=== PATIENT | male | born 1965 | race Caucasian/White ===

== ENCOUNTER 2016-10-19 15:20 | Emergency (ER) | payer OTHER ==
[2016-10-19 16:04] VITALS: BP 119/80
--- NOTE | 2016-10-19 17:10 | UC ---
Throat Pain/Nasal Fidel HPI - HPI Summary HPI Summary: patient has had a frontal headache and some sinus congestion for 1 day - History of Current Complaint Chief Complaint: UCGeneralIllness Stated Complaint: SINUSES Time Seen by Provider: 10/19/16 16:51 Hx Obtained From: Patient Onset/Duration: Sudden Onset, Lasting Hours Severity: Moderate Pain Intensity: 5 Pain Scale Used: 0-10 Numeric Cough: None Associated Signs & Symptoms: Positive: Sinus Discomfort - Epiglottits Risk Factors Epiglottis Risk Factors: Negative - Allergies/Home Medications Allergies/Adverse Reactions: Allergies Allergy/AdvReac Type Severity Reaction Status Date / Time No Known Allergies Allergy Verified 10/19/16 16:04 PMH/Surg Hx/FS Hx/Imm Hx Previously Healthy: Yes Endocrine History Of: Denies: Diabetes Cardiovascular History Of: Denies: Hypertension, Pacemaker/ICD GI/ History Of: Denies: Renal Disease Psychological History Of: Reports: Depression - ON MEDS MILD - Surgical History Surgical History: Yes Surgery Procedure, Year, and Place: SURGERY ON ROOF OF MOUTH A CHILD. MOLE REMOVED A CHILD FROM BACK. CYST REMOVED FROM LEG. left shoulder surgery - Family History Known Family History: Negative: Cardiac Disease, Hypertension - Social History Alcohol Use: None Alcohol Amount: 2-3 beer per day Substance Use Type: None Smoking Status (MU): Never Smoked Tobacco Review of Systems Constitutional: Fatigue Skin: Negative Eyes: Negative ENT: Nasal Discharge Respiratory: Negative Cardiovascular: Negative Gastrointestinal: Negative Genitourinary: Negative Motor: Negative Neurovascular: Negative Musculoskeletal: Negative Neurological: Headache Psychological: Negative All Other Systems Reviewed And Are Negative: Yes Physical Exam Triage Information Reviewed: Yes Appearance: Well-Appearing, Well-Nourished, Pain Distress Vital Signs: Initial Vital Signs Temp 97.5 F 10/19/16 16:00 Pulse 74 10/19/16 16:00 Resp 16 10/19/16 16:00 BP 119/80 10/19/16 16:00 Pulse Ox 97 10/19/16 16:00 Vital Signs Reviewed: Yes Eye Exam: Normal Eyes: Positive: Conjunctiva Clear ENT Exam: Normal ENT: Positive: Normal ENT inspection, Pharynx normal, TMs normal Dental Exam: Normal Neck exam: Normal Neck: Positive: Supple, Nontender, No Lymphadenopathy Respiratory Exam: Normal Respiratory: Positive: Chest non-tender, Lungs clear, Normal breath sounds Cardiovascular Exam: Normal Cardiovascular: Positive: RRR, No Murmur, Pulses Normal Abdominal Exam: Normal Abdomen Description: Positive: Nontender, No Organomegaly, Soft Bowel Sounds: Positive: Present Musculoskeletal Exam: Normal Musculoskeletal: Positive: Strength Intact, ROM Intact, No Edema Neurological Exam: Normal Neurological: Positive: Alert, Muscle Tone Normal Psychological Exam: Normal Skin Exam: Normal Throat Pain/Nasal Course/Dx - Course Course Of Treatment: hx obtained, other than headache exam was benign, will treat with prednisone for sinus congestion. - Differential Dx/Diagnosis Differential Diagnosis/HQI/PQRI: Influenza, Laryngitis, Otitis Media, Pharyngitis, Sinusitis, Tonsillitis, URI Provider Diagnoses: sinus congestion. headache Discharge - Discharge Plan Condition: Stable Disposition: HOME Patient Education Materials: Rhinosinusitis (ED) Additional Instructions: take the medications as prescribed. increase your fluid intake and get plenty of rest.
== END 2016-10-19 17:14 | disposition home or self-care (01) ==
LOC: UCCORT 15:20
DX: R09.81 Nasal congestion (principal); R51 Headache
CPT/HCPCS: 99212; G0463

== ENCOUNTER 2017-01-10 10:36 | Emergency (ER) | payer OTHER ==
[2017-01-10 11:55] VITALS: BP 141/81
--- NOTE | 2017-01-10 12:11 | UC ---
Throat Pain/Nasal Fidel HPI - HPI Summary HPI Summary: SINUS PAIN AND PRESSURE X 1 DAY NASAL CONGESTION, NO COUGH, NO FEVER OR CHILLS - History of Current Complaint Chief Complaint: UCRespiratory Stated Complaint: SINUS Time Seen by Provider: 01/10/17 11:33 Hx Obtained From: Patient Onset/Duration: Sudden Onset, Lasting Days - 1, Still Present Severity: Moderate Cough: None Associated Signs & Symptoms: Positive: Sinus Discomfort, Nasal Discharge. Negative: Dysphagia, FB Sensation, Drooling, Fever - Allergies/Home Medications Allergies/Adverse Reactions: Allergies Allergy/AdvReac Type Severity Reaction Status Date / Time No Known Allergies Allergy Verified 01/10/17 11:49 PMH/Surg Hx/FS Hx/Imm Hx Endocrine History Of: Denies: Diabetes Cardiovascular History Of: Denies: Hypertension, Pacemaker/ICD GI/ History Of: Denies: Renal Disease Psychological History Of: Reports: Depression - ON MEDS MILD - Surgical History Surgical History: Yes Surgery Procedure, Year, and Place: SURGERY ON ROOF OF MOUTH A CHILD. MOLE REMOVED A CHILD FROM BACK. CYST REMOVED FROM LEG. left shoulder surgery - Family History Known Family History: Negative: Cardiac Disease, Hypertension, Diabetes - Social History Alcohol Use: Occasionally Alcohol Amount: 2-3 beer per day Substance Use Type: None Smoking Status (MU): Never Smoked Tobacco - Immunization History Most Recent Influenza Vaccination: NONE Most Recent Tetanus Shot: UTD Most Recent Pneumonia Vaccination: N/A Review of Systems Constitutional: Negative Skin: Negative Eyes: Negative ENT: Nasal Discharge Respiratory: Negative Cardiovascular: Negative Gastrointestinal: Negative Genitourinary: Negative Motor: Negative Neurovascular: Negative Musculoskeletal: Negative Neurological: Negative Psychological: Negative All Other Systems Reviewed And Are Negative: Yes Physical Exam Triage Information Reviewed: Yes Appearance: Well-Appearing, No Pain Distress, Well-Nourished Vital Signs: Initial Vital Signs Temp 98.5 F 01/10/17 11:50 Pulse 62 01/10/17 11:50 Resp 18 01/10/17 11:50 BP 141/81 01/10/17 11:50 Pulse Ox 99 01/10/17 11:50 Vital Signs Reviewed: Yes Eyes: Positive: Conjunctiva Clear ENT: Positive: Normal ENT inspection, Hearing grossly normal, Pharynx normal, TMs normal. Negative: Pharyngeal erythema, Nasal congestion, Nasal drainage Neck: Positive: Supple, Nontender, No Lymphadenopathy Respiratory: Positive: Chest non-tender, Lungs clear, Normal breath sounds Cardiovascular: Positive: RRR, No Murmur, Pulses Normal Skin Exam: Normal Throat Pain/Nasal Course/Dx - Differential Dx/Diagnosis Provider Diagnoses: URI Discharge - Discharge Plan Condition: Stable Disposition: HOME Patient Education Materials: Upper Respiratory Infection (ED) Referrals: Yariel Pate MD [Primary Care Provider] - If Needed Additional Instructions: MAY CONT. WITH MUCINEX , OTC FLONASE TYLENOL NEEDED FOR PAIN
== END 2017-01-10 12:26 | disposition home or self-care (01) ==
LOC: UCCORT 10:36
DX: J06.9 Acute upper respiratory infection, unspecified (principal); F32.9 Major depressive disorder, single episode, unspecified
CPT/HCPCS: 99211; G0463

== ENCOUNTER 2017-09-19 11:43 | Emergency (ER) | payer OTHER ==
[2017-09-19 12:03] VITALS: BP 134/83
--- NOTE | 2017-09-19 13:51 | ED ---
Throat Pain/Nasal Congestion - HPI Summary HPI Summary: 52 yr old with the complaint of sinus pressure, green nasal drainage, and post nasal drip for about three weeks. he denies fever. He denies coughing. He feels he has a sinus infection. - History of Current Complaint Chief Complaint: UCRespiratory Time Seen by Provider: 09/19/17 13:37 - Allergies/Home Medications Allergies/Adverse Reactions: Allergies Allergy/AdvReac Type Severity Reaction Status Date / Time No Known Allergies Allergy Verified 09/19/17 12:03 Home Medications: Home Medications Aspirin EC Low Dose* [Ecotrin EC Low Dose 81 MG*] 81 mg PO DAILY 09/19/17 [ History Confirmed 09/19/17] PMH/Surg Hx/FS Hx/Imm Hx Endocrine/Hematology History: Denies: Hx Diabetes Cardiovascular History: Denies: Hx Hypertension, Hx Pacemaker/ICD GI History: Reports: Hx Gastroesophageal Reflux Disease - OCCASSIONAL History: Denies: Hx Renal Disease Musculoskeletal History: Reports: Hx Tendonitis - PATELLA LEFT Sensory History: Reports: Hx Contacts or Glasses - READING Denies: Hx Hearing Aid Opthamlomology History: Reports: Hx Contacts or Glasses - READING Psychiatric History: Reports: Hx Depression - ON MEDS MILD Denies: Hx Panic Disorder - Surgical History Surgery Procedure, Year, and Place: SURGERY ON ROOF OF MOUTH A CHILD. MOLE REMOVED A CHILD FROM BACK. CYST REMOVED FROM LEG. left shoulder surgery Hx Anesthesia Reactions: No Infectious Disease History: No Infectious Disease History: Denies: Hx Clostridium Difficile, Hx Hepatitis, Hx Human Immunodeficiency Virus (HIV), Hx of Known/Suspected MRSA, Hx Shingles, Hx Tuberculosis, Hx Known/ Suspected VRE, Hx Known/Suspected VRSA, History Other Infectious Disease, Traveled Outside the [place] in Last 30 Days - Family History Known Family History: Negative: Cardiac Disease, Hypertension, Diabetes - Social History Occupation: Employed Full-time Alcohol Use: Occasionally Alcohol Amount: 2-3 beer per day Substance Use Type: Reports: None Smoking Status (MU): Never Smoked Tobacco Review of Systems Constitutional: Negative Positive: Nasal Discharge, Other - sinus pressure All Other Systems Reviewed And Are Negative: Yes Physical Exam Triage Information Reviewed: Yes Vital Signs On Initial Exam: Initial Vitals Temp Pulse Resp BP Pulse Ox 98.1 F 63 18 134/83 98 09/19/17 11:59 09/19/17 11:59 09/19/17 11:59 09/19/17 11:59 09/19/17 11:59 Vital Signs Reviewed: Yes Appearance: Positive: Well-Appearing, No Pain Distress Skin: Positive: Warm, Skin Color Reflects Adequate Perfusion Head/Face: Positive: Normal Head/Face Inspection Eyes: Positive: EOMI, MADIHA ENT: Positive: Pharynx normal, Nasal congestion, TMs normal, Sinus tenderness Neck: Positive: Nontender Respiratory/Lung Sounds: Positive: Clear to Auscultation, Breath Sounds Present Cardiovascular: Positive: RRR. Negative: Murmur Abdomen Description: Positive: Nontender Musculoskeletal: Positive: Strength/ROM Intact Neurological: Positive: Sensory/Motor Intact, Alert, Oriented to Person Place, Time, CN Intact II-III Psychiatric: Positive: Normal - Angel Coma Scale Best Eye Response: 4 - Spontaneous Best Motor Response: 6 - Obeys Commands Best Verbal Response: 5 - Oriented Diagnostics - Vital Signs Vital Signs Temp Pulse Resp BP Pulse Ox 09/19/17 11:59 98.1 F 63 18 134/83 98 - Laboratory Lab Statement: Any lab studies that have been ordered have been reviewed, and results considered in the medical decision making process. EENT Course/Dx - Course Course Of Treatment: 52 yr old with sinusitis. Plan dc home on Augmentin - Diagnoses Provider Diagnoses: Sinusitis Discharge - Discharge Plan Condition: Good Disposition: HOME Prescriptions: Amoxicillin/Clavulanate TAB* [Augmentin TAB 875*] 875 mg PO BID #20 tab Patient Education Materials: Sinusitis (ED) Referrals: Yariel Pate MD [Primary Care Provider] - 3 Days
== END 2017-09-19 13:54 | disposition home or self-care (01) ==
LOC: UCCORT 11:43
DX: J32.9 Chronic sinusitis, unspecified (principal); F32.9 Major depressive disorder, single episode, unspecified; Z72.89 Other problems related to lifestyle
CPT/HCPCS: 99212; G0463

== ENCOUNTER 2018-08-29 09:21 | Emergency (ER) | payer OTHER ==
[2018-08-29 10:04] VITALS: BP 120/80
--- NOTE | 2018-08-29 10:13 | UC ---
Throat Pain/Nasal Fidel HPI - HPI Summary HPI Summary: 53 year old male here for congestion and runny nose and heaviness for 3 weeks. Reports headache yesterday, prompting him to come to the ED. No fever or chills. No n/v or any other complaints. - History of Current Complaint Chief Complaint: UCGeneralIllness Stated Complaint: SINUSES Time Seen by Provider: 08/29/18 10:03 Onset/Duration: Sudden Onset Pain Intensity: 2 Associated Signs & Symptoms: Positive: Sinus Discomfort, Nasal Discharge - Allergies/Home Medications Allergies/Adverse Reactions: Allergies Allergy/AdvReac Type Severity Reaction Status Date / Time No Known Allergies Allergy Verified 08/29/18 10:01 Home Medications: Home Medications guaiFENesin [Mucinex] 600 mg PO BID 08/29/18 [History Confirmed 08/29/18] PMH/Surg Hx/FS Hx/Imm Hx Previously Healthy: Yes - Surgical History Surgical History: Yes Surgery Procedure, Year, and Place: SURGERY ON ROOF OF MOUTH A CHILD. MOLE REMOVED A CHILD FROM BACK. CYST REMOVED FROM LEG. left shoulder surgery - Family History Known Family History: Negative: Cardiac Disease, Hypertension, Diabetes - Social History Alcohol Use: Daily Alcohol Amount: 2-3 beer per day Substance Use Type: None Smoking Status (MU): Never Smoked Tobacco - Immunization History Most Recent Influenza Vaccination: NONE Most Recent Tetanus Shot: UTD Most Recent Pneumonia Vaccination: N/A Review of Systems All Other Systems Reviewed And Are Negative: Yes Constitutional: Positive: Negative Skin: Positive: Negative Eyes: Positive: Negative ENT: Positive: Nasal Discharge, Sinus Congestion, Sinus Pain/Tenderness Respiratory: Positive: Negative Cardiovascular: Positive: Negative Gastrointestinal: Positive: Negative Genitourinary: Positive: Negative Motor: Positive: Negative Neurovascular: Positive: Negative Musculoskeletal: Positive: Negative Neurological: Positive: Negative Psychological: Positive: Negative Physical Exam Vital Signs: Initial Vital Signs Temp 36.6 C 08/29/18 09:59 Pulse 65 08/29/18 09:59 Resp 14 08/29/18 09:59 BP 120/80 08/29/18 09:59 Pulse Ox 100 08/29/18 09:59 Eye Exam: Normal ENT: Positive: Pharyngeal erythema, Nasal congestion, Nasal drainage, Sinus tenderness. Negative: Tonsillar swelling, Tonsillar exudate Dental Exam: Normal Neck exam: Normal Neck: Positive: 1 Respiratory Exam: Normal Cardiovascular Exam: Normal Abdominal Exam: Normal Musculoskeletal Exam: Normal Neurological Exam: Normal Psychological Exam: Normal Skin Exam: Normal Throat Pain/Nasal Course/Dx - Differential Dx/Diagnosis Differential Diagnosis/HQI/PQRI: Pharyngitis, Sinusitis, URI Provider Diagnosis: Sinusitis Discharge - Sign-Out/Discharge Documenting (check all that apply): Patient Departure All imaging exams completed and their final reports reviewed: No Studies - Discharge Plan Condition: Good Disposition: HOME Prescriptions: Amoxicillin/Clavulanate TAB* [Augmentin TAB 875*] 875 mg PO BID #20 tab Patient Education Materials: Sinusitis (ED) Referrals: Yariel Pate MD [Primary Care Provider] - Additional Instructions: Take ibuprofen or tylenol for the pain. Continue to take mucinex - Billing Disposition and Condition Condition: GOOD Disposition: Home
== END 2018-08-29 10:22 | disposition home or self-care (01) ==
LOC: UCCORT 09:21
DX: J32.9 Chronic sinusitis, unspecified (principal)
CPT/HCPCS: 99212; G0463